=== PATIENT | female | born 1985 | race African-American/Black ===

== ENCOUNTER 2017-01-24 08:23 | Emergency (ER) | payer BC ==
--- NOTE | 2017-01-24 09:03 | RAD ---
THREE VIEWS RIGHT FOOT: Date: 01-24-17 History: Right foot pain and swelling for one week. FINDINGS/IMPRESSION: Lisfranc joint is normally aligned. There is no evidence of a fracture, dislocation, or other osseous abnormality involving the right foot. POS: YESSICA
[2017-01-24] MEDS ORDERED: Naproxen 500 MG TAB ONE (09:32)
[2017-01-24 10:08] LABS: ALT (SGPT) 16 U/L (8-55); AST (SGOT) 22 U/L (5-34); Alkaline Phosphatase 46 U/L (40-150); Anion Gap 12 mmol/L (10-20); BUN (Urea Nitrogen) 9 mg/dL (7.0-18.7); Bilirubin, Total 0.4 mg/dL (0.2-1.2); Calc. Creatinine Clearance 0 mL/min (70-130); Calcium 9.9 mg/dL (7.8-10.44); Carbon Dioxide 22 mmol/L (22-29); Chloride 109 mmol/L (98-107); Estimated GFR-MDRD Greater than 90; Globulin 3.3 g/dL (2.4-3.5); Protein, Total 7.6 g/dL (6.0-8.3); Uric Acid 3.4 mg/dL (2.6-6.0)
== END 2017-01-24 09:40 | disposition home or self-care (01) ==
LOC: ERS 08:23
DX: M79.671 Pain in right foot (principal); F17.210 Nicotine dependence, cigarettes, uncomplicated
CPT/HCPCS: 80053; 84550; 99406

== ENCOUNTER 2017-05-22 07:40 | Emergency (ER) | payer BC ==
[2017-05-22] MEDS ORDERED: Dexamethasone 10 MG/ML VIAL ONE (08:42)
[2017-05-22] MEDS ORDERED: Bicillin LA 1.2 MILLION UNITS/2 ML SYRINGE ONE (08:42)
[2017-05-22] MEDS ORDERED: Acetaminophen 500 MG TAB ONE (08:50)
== END 2017-05-22 09:15 | disposition home or self-care (01) ==
LOC: ERS 07:40
DX: J02.0 Streptococcal pharyngitis (principal); I10 Essential (primary) hypertension; F17.210 Nicotine dependence, cigarettes, uncomplicated
CPT/HCPCS: 87430; 96372; J0561; J1100

== ENCOUNTER 2017-08-19 13:27 | Emergency (ER) | payer BC ==
[2017-08-19] MEDS ORDERED: Ketorolac Tromethamine 30 MG/ML VIAL ONE (14:11)
== END 2017-08-19 14:36 | disposition home or self-care (01) ==
LOC: ERS 13:27
DX: K03.81 Cracked tooth (principal); K02.9 Dental caries, unspecified; F17.210 Nicotine dependence, cigarettes, uncomplicated; Z71.6 Tobacco abuse counseling
CPT/HCPCS: 96372; 99406; J1885

== ENCOUNTER 2022-05-31 16:58 | Emergency (ER) | payer BC | END 2022-05-31 17:20 | disposition home or self-care (01) | LOC: ERS 16:58 | DX: J01.90 Acute sinusitis, unspecified (principal); F17.210 Nicotine dependence, cigarettes, uncomplicated | CPT/HCPCS: 99283 ==